=== PATIENT | male | born 1940 | race Caucasian/White ===

== ENCOUNTER 2022-07-10 20:07 | Emergency (ER) | payer MEDICARE, BC ==
[2022-07-10] MEDS ORDERED: Bacitracin 1 PK ONE (21:51)
[2022-07-10] MEDS ORDERED: Doxycycline 100 MG CAP PO SCH (22:00)
== END 2022-07-10 22:08 | disposition home or self-care (01) ==
LOC: CSHERS 20:07
DX: L03.012 Cellulitis of left finger (principal); I10 Essential (primary) hypertension; E78.5 Hyperlipidemia, unspecified; Z79.01 Long term (current) use of anticoagulants; Z79.82 Long term (current) use of aspirin
CPT/HCPCS: 10060